=== PATIENT | female | born 1980 | race Caucasian/White ===

== ENCOUNTER 2016-11-19 17:19 | Emergency (ER) | payer SELFPAY ==
[~2016-11-19] VITALS: Ht 172.7 cm; Wt 70.0 kg
[~2016-11-19 17:19] MED LIST: ADDE30XR PO; BUPR100CR PO; CEPH500 PO; METH40TA9 PO; PROZ20CA11 PO; RISP0.5T2 PO; TOPI50TA4 PO
[2016-11-19 17:22] VITALS: BP 126/79; PULSE 104; RESP 20; TEMP 97.5; O2SAT 100
[2017-02-08] MEDS ORDERED: DIAZ5 PO (19:16)
[2017-02-08] MEDS ORDERED: ADDE30TA PO (19:16)
[2017-02-08] MEDS ORDERED: TOPA50TA7 PO (19:16)
[2017-02-08] MEDS ORDERED: BUPR100CR PO (19:16)
[2017-02-08] MEDS ORDERED: PROZ40CA PO (19:16)
[2017-02-08] MEDS ORDERED: MACR100C2 PO (22:33)
== END 2016-11-19 18:09 | disposition left against medical advice (07) ==
LOC: NED 17:19
DX: Z53.21 Procedure and treatment not carried out due to patient leaving prior to being seen by health care provider (principal)
CPT/HCPCS: 99281